=== PATIENT | male | born 2000 | race Asian ===

== ENCOUNTER 2019-09-27 10:00 | Emergency (ER) | payer MEDICAID ==
[~2019-09-27] VITALS: Ht 167.6 cm; Wt 53.6 kg
[2019-09-27 10:04] VITALS: BP 121/70; Ht 167.6 cm; Wt 53.6 kg
== END 2019-09-27 11:32 | disposition home or self-care (01) ==
LOC: ED 10:00
DX: J11.1 Influenza due to unidentified influenza virus with other respiratory manifestations (principal); G47.00 Insomnia, unspecified; F32.9 Major depressive disorder, single episode, unspecified

== ENCOUNTER 2019-10-12 13:42 | Emergency (ER) | payer OTHER ==
[~2019-10-12] VITALS: Ht 167.6 cm; Wt 52.2 kg
[2019-10-12 13:46] VITALS: Ht 167.6 cm; Wt 52.2 kg
[2019-10-12 14:37] LABS: BASOPHIL % 0.3 % (0-2); PLATELET COUNT 232 x10^3mcL (130-400); RED CELL DISTRIBUTION WIDTH 13.6 % (11.5-14.5)
[2019-10-12 14:58] LABS: CALCIUM 9.7 mg/dL (8.5-10.1); CARBON DIOXIDE 21.6 mmol/L (21-32); CHLORIDE SERUM 101 mmol/L (98-107); CREATININE SERUM 0.9 mg/dL (0.7-1.3); GFR1 > 60 mL/min; GLUCOSE SERUM 79 mg/dL (74-106); POTASSIUM SERUM 3.4 mmol/L (3.5-5.1); SODIUM SERUM 141 mmol/L (136-145)
[2019-10-12 15:03] LABS: ALBUMIN 4.7 g/dL (3.4-5.0); ALKALINE PHOSPHATASE 76 U/L (46-116); ALT/SGPT 36 U/L (16-63); AST/SGOT 77 U/L (15-37); BILIRUBIN TOTAL 1.2 mg/dL (0.20-1.00)
[2019-10-12 15:13] LABS: TOTAL PROTEIN, SERUM 8.8 g/dL (6.4-8.2)
[2019-10-12 15:39] LABS: UA SPECIFIC GRAVITY 1.025 (1.005-1.035); microscopic required? YES; urine erythrocyte TRACE (NEGATIVE)
[2019-10-12 16:23] VITALS: BP 121/57
== END 2019-10-12 16:23 | disposition home or self-care (01) ==
LOC: EDSEX 13:42 → ED 13:42
PROVIDERS: Emergency Medicine
DX: B34.9 Viral infection, unspecified (principal)
CPT/HCPCS: 36600; 87804; J1885; J2405; Q0092